=== PATIENT | male | born 1980 | race Hispanic/Latino ===

== ENCOUNTER 2016-09-26 07:05 | Emergency (ER) | payer BC ==
[2016-09-26 07:06] VITALS: BMI 30.8
[2016-09-26] MEDS ORDERED: Albuterol-Ipratrop 3 mg / 0.5 (3 ml) UD IH STA ×3 (07:36→07:37)
--- NOTE | 2016-09-26 07:39 | ED PDOC ---
Arrival/HPI - General Chief Complaint: Shortness Of Breath Time Seen by Provider: 09/26/16 07:08 Historian: Patient - History of Present Illness Narrative History of Present Illness (Text): 09/26/16 07:36 Mikey Kaur is a 36 year old male, with a history of asthma, presents to the emergency department complaining of asthma exacerbation for past 5 days. Reports of shortness of breath and wheezing, but denies any cough. Patient used nebulizer treatments at home for minimal relief. Denies any fever, chills, headache, dizziness, chest pain, nausea, vomiting, diarrhea, urinary symptoms, or any other complaints at this time. Time/Duration: < week (5 days ) Symptom Onset: Gradual Symptom Course: Intermittent Severity Level: Mild Activities at Onset: Light Past Medical History - Provider Review Nursing Documentation Reviewed: Yes - Infectious Disease Hx of Infectious Diseases: None - Tetanus Immunization Tetanus Immunization: Unknown - Cardiac Hx Cardiac Disorders: No - Pulmonary Hx Respiratory Disorders: Yes Hx Asthma: Yes - Neurological Hx Neurological Disorder: No - HEENT Hx HEENT Disorder: No - Renal Hx Renal Disorder: No - Endocrine/Metabolic Hx Endocrine Disorders: No - Hematological/Oncological Hx Blood Disorders: No - Integumentary Hx Dermatological Disorder: No - Musculoskeletal/Rheumatological Hx Musculoskeletal Disorders: No - Gastrointestinal Hx Gastrointestinal Disorders: No - Genitourinary/Gynecological Hx Genitourinary Disorders: No - Psychiatric Hx Psychophysiologic Disorder: No Hx Substance Use: No - Past Surgical History Past Surgical History: No Previous - Surgical History Hx Tonsillectomy: Yes - Anesthesia Hx Anesthesia: Yes Hx Anesthesia Reactions: No Hx Malignant Hyperthermia: No - Suicidal Assessment Feels Threatened In Home Enviroment: No Family/Social History - Physician Review Nursing Documentation Reviewed: Yes Family/Social History: No Known Family HX Smoking Status: Never Smoked Hx Alcohol Use: No Hx Substance Use: No Hx Substance Use Treatment: No Allergies/Home Meds Allergies/Adverse Reactions: Allergies No Known Allergies Allergy (Verified 09/26/16 07:14) Home Medications: Home Meds Medication Instructions Recorded Confirmed Albuterol HFA [Ventolin HFA 90 0 mg IH PRN PRN 09/26/16 09/26/16 mcg/actuation (8 g)] Review of Systems - Physician Review All systems were reviewed & negative as marked: Yes - Review of Systems Constitutional: Normal. absent: Fatigue, Fevers Respiratory: SOB, Wheezing. absent: Cough, Sputum Cardiovascular: Normal. absent: Chest Pain Gastrointestinal: Normal. absent: Diarrhea, Nausea, Vomiting Genitourinary Male: Normal. absent: Dysuria Neurological: Normal. absent: Headache, Dizziness Psychiatric: Normal Physical Exam - Physical Exam Narrative Physical Exam (Text): Constitutional: No acute distress. Head: Normocephalic. Atraumatic. Eyes: PERRL. ENT: Moist mucous membranes. Neck: Supple. Cardiovascular: Regular rate. Chest: No tenderness. Respiratory: bilateral inspiratory and expiratory wheezing. No accessory muscle use. GI: Soft. Nontender. Nondistended. Back: No CVA tenderness. Musculoskeletal: No tenderness or swelling of extremities. Skin: No rash. Neurologic: Alert, no focal deficit. Vital Signs Reviewed: Yes Vital Signs Temp Pulse Resp BP Pulse Ox 09/26/16 07:15 18 95 09/26/16 07:06 97.6 F 75 18 103/64 95 Temperature: Afebrile Blood Pressure: Normal Pulse: Regular Respiratory Rate: Normal Appearance: Positive for: Well-Appearing, Non-Toxic, Comfortable Pain Distress: None Mental Status: Positive for: Alert and Oriented X 3 Medical Decision Making ED Course and Treatment: 09/26/16 07:41 Impression: A 36 year old male who presents to the ed for asthma exacerbation symptoms including shortness of breath and wheezing Differential Diagnosis include but are not limited to: Asthma vs. bronchitis vs. pneumonia Plan: -- Chest X-ray -- Duoneb -- Predisone -- Reassess and disposition Progress Notes: 09/26/16 09:04 Chest X-ray results reviewed: IMPRESSION: No focal consolidation, significant pleural effusion, or definite pneumothorax identified. 09/26/16 09:48 On reevaluation, patient states that breathing has improved markedly and is in no acute distress. I have discussed the results and plan with the patient, who expresses understanding. Patient given the opportunity to ask question, all questions were answered and there is agreement with the plan to discharge the patient home. Patient is stable for discharge. Patient was instructed to follow up with physician/clinic in 1-2 days or return if symptoms persist/ worsen or new concerning symptoms arise. - RAD Interpretation Narrative RAD Interpretations (Text): Chest PA and lateral FINDINGS: Examination limited by habitus. LUNGS: No focal consolidation. Please note that chest x-ray has limited sensitivity for the detection of pulmonary masses. PLEURA: No significant pleural effusion identified. No definite pneumothorax . CARDIOVASCULAR: The cardiomediastinal silhouette appears within normal limits of size. OSSEOUS STRUCTURES: No acute osseous abnormality identified. VISUALIZED UPPER ABDOMEN: Unremarkable. OTHER FINDINGS: None. IMPRESSION: No focal consolidation, significant pleural effusion, or definite pneumothorax identified. Radiology Orders: 09/26/16 07:36 CHEST TWO VIEWS (PA/LAT) [RAD] Stat Web Portal Developer: Radiologist - Medication Orders Current Medication Orders: Discontinued Medications Albuterol/Ipratropium (Duoneb 3 Mg/0.5 Mg (3 Ml) Ud) 3 ml IH STAT STA Stop: 09/26/16 07:37 Last Admin: 09/26/16 07:49 Dose: 3 ML Albuterol/Ipratropium (Duoneb 3 Mg/0.5 Mg (3 Ml) Ud) 3 ml IH STAT STA Stop: 09/26/16 07:38 Last Admin: 09/26/16 07:56 Dose: 3 ML Albuterol/Ipratropium (Duoneb 3 Mg/0.5 Mg (3 Ml) Ud) 3 ml IH STAT STA Stop: 09/26/16 07:38 Last Admin: 09/26/16 08:05 Dose: 3 ML Prednisone (Prednisone Tab) 60 mg PO STAT ONE Stop: 09/26/16 07:37 Last Admin: 09/26/16 07:45 Dose: 60 MG - Leylaibe Statement The provider has reviewed the documentation as recorded by the Ammon Plunkett Provider Attestation: All medical record entries made by the Ammon were at my direction and personally dictated by me. I have reviewed the chart and agree that the record accurately reflects my personal performance of the history, physical exam, medical decision making, and the department course for this patient. I have also personally directed, reviewed, and agree with the discharge instructions and disposition. Disposition/Present on Arrival - Present on Arrival Any Indicators Present on Arrival: No History of DVT/PE: No History of Uncontrolled Diabetes: No Urinary Catheter: No History of Decub. Ulcer: No History Surgical Site Infection Following: None - Disposition Have Diagnosis and Disposition been Completed?: Yes Diagnosis: Asthma attack Disposition: HOME/ ROUTINE Disposition Time: 09:46 Patient Plan: Discharge Patient Problems: Current Active Problems Problem Status Diagnosed Asthma attack Acute Condition: STABLE Discharge Instructions (ExitCare): Asthma (ED) Prescriptions: Albuterol 0.083% [Albuterol Sulfate 3 Ml] 3 ml IH Q4 #150 neb Prednisone [Deltasone] 3 tab PO DAILY #12 tablet Albuterol HFA [Ventolin HFA 90 mcg/actuation (8 g)] 2 puff IH Q6 #1 inhaler Referrals: Yady Adams, [Primary Care Provider] - Follow up with primary
[2016-09-26 08:00] VITALS: RESP 18; TEMP 97.6
--- NOTE | 2016-09-26 09:01 | RAD ---
HISTORY: r/o PNA COMPARISON: Chest x-ray performed 10/03/15. TECHNIQUE: Chest PA and lateral FINDINGS: Examination limited by habitus. LUNGS: No focal consolidation. Please note that chest x-ray has limited sensitivity for the detection of pulmonary masses. PLEURA: No significant pleural effusion identified. No definite pneumothorax . CARDIOVASCULAR: The cardiomediastinal silhouette appears within normal limits of size. OSSEOUS STRUCTURES: No acute osseous abnormality identified. VISUALIZED UPPER ABDOMEN: Unremarkable. OTHER FINDINGS: None. IMPRESSION: No focal consolidation, significant pleural effusion, or definite pneumothorax identified.
[2016-09-26 10:16] VITALS: BP 116/63; PULSE 68; O2SAT 96
== END 2016-09-26 10:16 | disposition home or self-care (01) ==
LOC: ED 07:05
DX: J45.909 Unspecified asthma, uncomplicated (principal)

== ENCOUNTER 2016-10-10 17:07 | Emergency (ER) | payer BC ==
[2016-10-10 17:08] VITALS: BMI 30.8
[2016-10-10] MEDS ORDERED: Levalbuterol 1.25 MG/3 ML Inhal Soln UD IH STA (17:31)
[2016-10-10] MEDS ORDERED: Morphine 4 mg/ml ISec SC STA (17:32)
--- NOTE | 2016-10-10 17:36 | ED PDOC ---
Arrival/HPI - General Chief Complaint: Back Pain Time Seen by Provider: 10/10/16 17:22 Historian: Patient - History of Present Illness Narrative History of Present Illness (Text): 10/10/16 17:32 36 y.o. male whose PMHx includes asthma and chronic low back pain (reports 2 herniated discs) who comes to the ED with complaint of mid level back pain slightly toward the right. He says he lifted his son and shortly after developed the pain there. The pain is worse with movement. No flank pain or urinary symptoms. No sob, cp, or cough and does not feel like asthma. He reports taking one tablet of flexeril for it without relief. Past Medical History - Infectious Disease Hx of Infectious Diseases: None - Tetanus Immunization Tetanus Immunization: Unknown - Cardiac Hx Cardiac Disorders: No - Pulmonary Hx Respiratory Disorders: Yes Hx Asthma: Yes - Neurological Hx Neurological Disorder: No - HEENT Hx HEENT Disorder: No - Renal Hx Renal Disorder: No - Endocrine/Metabolic Hx Endocrine Disorders: No - Hematological/Oncological Hx Blood Disorders: No - Integumentary Hx Dermatological Disorder: No - Musculoskeletal/Rheumatological Hx Musculoskeletal Disorders: No - Gastrointestinal Hx Gastrointestinal Disorders: No - Genitourinary/Gynecological Hx Genitourinary Disorders: No - Psychiatric Hx Psychophysiologic Disorder: No Hx Substance Use: No - Past Surgical History Past Surgical History: No Previous - Surgical History Hx Tonsillectomy: Yes - Anesthesia Hx Anesthesia: Yes Hx Anesthesia Reactions: No Hx Malignant Hyperthermia: No - Suicidal Assessment Feels Threatened In Home Enviroment: No Family/Social History Family/Social History: No Known Family HX Smoking Status: Never Smoked Hx Alcohol Use: No Hx Substance Use: No Hx Substance Use Treatment: No Allergies/Home Meds Allergies/Adverse Reactions: Allergies No Known Allergies Allergy (Verified 09/26/16 07:14) Review of Systems - Review of Systems Constitutional: absent: Fevers Respiratory: absent: SOB, Cough Cardiovascular: absent: Chest Pain Gastrointestinal: absent: Abdominal Pain, Nausea, Vomiting Genitourinary Male: absent: Dysuria, Frequency, Hematuria, Urinary Output Changes Musculoskeletal: Back Pain Physical Exam Vital Signs Temp Pulse Resp BP Pulse Ox 10/10/16 18:30 66 16 129/65 97 10/10/16 17:08 98.2 F 66 17 122/62 96 Temperature: Afebrile Blood Pressure: Normal Pulse: Regular Respiratory Rate: Normal Appearance: Positive for: Well-Appearing, Non-Toxic Pain Distress: Mild Mental Status: Positive for: Alert and Oriented X 3 - Systems Exam Head: Present: Atraumatic, Normocephalic Respiratory/Chest: Present: Other (mildly reduced air entry) Cardiovascular: Present: Regular Rate and Rhythm, Normal S1, S2. No: Murmurs Abdomen: Present: Normal Bowel Sounds. No: Tenderness, Distention, Peritoneal Signs Back: Present: Normal Inspection, Paraspinal Tenderness (R paraspinal tenderness at the midlevel thoracic spine). No: CVA Tenderness, Midline Tenderness Upper Extremity: Present: Normal Inspection. No: Cyanosis, Edema Neurological: Present: GCS=15 Psychiatric: Present: Alert, Oriented x 3, Normal Insight, Normal Concentration Medical Decision Making ED Course and Treatment: 10/10/16 20:32 Patient with back pain, likely musculoskeletal in nature. XR is unremarkable. No symptoms consistent with asthma or PE. Urine is normal - no indication of UTI and less likely renal colic; given nsaid and muscle relaxant - feeling better here in the ED - will d/c on nsaid, muscle relaxant, and analgesic. - Lab Interpretations Lab Results: Lab Results 10/10/16 19:15: Urine Color Yellow, Urine Appearance Clear, Urine pH 6.5, Ur Specific [place] 1.015, Urine Protein Negative, Urine Glucose (UA) Negative, Urine Ketones Negative, Urine Blood Negative, Urine Nitrate Negative, Urine Bilirubin Negative, Urine Urobilinogen 0.2, Ur Leukocyte Esterase Negative - RAD Interpretation Radiology Orders: 10/10/16 17:32 DORSAL (THORACIC) SPINE [RAD] Stat - Medication Orders Current Medication Orders: Discontinued Medications Diazepam (Valium) 5 mg PO ONCE ONE Stop: 10/10/16 17:32 Last Admin: 10/10/16 17:41 Dose: 5 MG Ketorolac Tromethamine (Toradol) 60 mg IM STAT STA Stop: 10/10/16 17:32 Last Admin: 10/10/16 17:41 Dose: 60 MG IM Administration Charges Document 10/10/16 17:41 SF (Rec: 10/10/16 17:41 SF [id number]) Injection Site MAR Injection Site Left Deltoid Charges for Administration # of IM Administrations 1 Levalbuterol HCl (Xopenex) 1.25 mg IH STAT STA Stop: 10/10/16 17:32 Last Admin: 10/10/16 18:01 Dose: 1.25 MG Morphine Sulfate (Morphine) 4 mg SC STAT STA Stop: 10/10/16 17:33 Last Admin: 10/10/16 17:41 Dose: 4 MG MAR Pain Assessment Document 10/10/16 17:41 SF (Rec: 10/10/16 17:41 [place] [id number]) Pain Reassessment Is this a pain reassessment? Yes Subcutaneous Administrations Document 10/10/16 17:41 SF (Rec: 10/10/16 17:41 SF [id number]) Injection Site MAR Injection Site Right Deltoid Charges for Administration # of Subcutaneous Administrations 1 Disposition/Present on Arrival - Present on Arrival Any Indicators Present on Arrival: No History of DVT/PE: No History of Uncontrolled Diabetes: No Urinary Catheter: No History of Decub. Ulcer: No History Surgical Site Infection Following: None - Disposition Have Diagnosis and Disposition been Completed?: No Diagnosis: Back strain Disposition: HOME/ ROUTINE Disposition Time: 20:40 Patient Plan: Discharge Condition: GOOD Discharge Instructions (ExitCare): Back Pain (ED) Additional Instructions: Take the medications as prescribed. Avoid heavy lifting. Follow up with your primary care doctor. Return to the emergency department if any new concerning symptoms. Prescriptions: Baclofen [Lioresal] 1 tab PO TID PRN #20 tab PRN Reason: Pain, Moderate (4-7) Naproxen [Naprosyn] 500 mg PO BID PRN #30 tab PRN Reason: Pain Tramadol HCl/Acetaminophen [Ultracet Tablet] 1 - 2 tab PO Q8H PRN #20 tablet PRN Reason: Pain, Severe (8-10) Forms: WORK NOTE
[2016-10-10 17:39] VITALS: TEMP 98.2
[2016-10-10 20:02] LABS: PH,URINE 6.5 (4.7-8.0); URINE BILIRUBIN NEGATIVE (NEGATIVE); URINE BLOOD NEGATIVE (NEGATIVE); URINE GLUCOSE (UA) NEGATIVE (NEGATIVE); URINE KETONE NEGATIVE (NEGATIVE); URINE LEUKOCYTE ESTERASE NEGATIVE Leu/uL (NEGATIVE); URINE PROTEIN NEGATIVE mg/dL (<30 mg/dL); URINE UROBILINOGEN 0.2 E.U./dL (<1 E.U./dL)
[2016-10-10 20:21] LABS: URINE APPEARANCE CLEAR (CLEAR); URINE COLOR YELLOW (YELLOW)
[2016-10-10 20:55] VITALS: BP 100/60; PULSE 62; RESP 18; O2SAT 98
--- NOTE | 2016-10-11 09:30 | RAD ---
HISTORY: mid thoracic spine pain COMPARISON: No prior. FINDINGS: BONES: Alignment maintained. No fracture. DISC SPACES: Normal. SOFT TISSUES: Normal. OTHER FINDINGS: None. IMPRESSION: Normal radiographs of the thoracic spine.
== END 2016-10-10 21:00 | disposition home or self-care (01) ==
LOC: ED 17:07
DX: S39.012A Strain of muscle, fascia and tendon of lower back, initial encounter (principal); X50.9XXA Other and unspecified overexertion or strenuous movements or postures, initial encounter
CPT/HCPCS: 72070; 81003; 96372; 99284; J1885; J2270

== ENCOUNTER 2016-10-12 06:11 | Observation (INO) | payer BC ==
[2016-10-12 06:12] VITALS: BMI 30.8
--- NOTE | 2016-10-12 06:17 | ED PDOC ---
Arrival/HPI - General Chief Complaint: Shortness Of Breath Time Seen by Provider: 10/12/16 06:15 - History of Present Illness Narrative History of Present Illness (Text): 10/12/16 06:15 pt presents for sob and wheezing this am , no fever or chills or vomiting or chest pain or sore throat Past Medical History - Provider Review Nursing Documentation Reviewed: Yes - Infectious Disease Hx of Infectious Diseases: None - Tetanus Immunization Tetanus Immunization: Unknown - Cardiac Hx Cardiac Disorders: No - Pulmonary Hx Respiratory Disorders: Yes Hx Asthma: Yes - Neurological Hx Neurological Disorder: No - HEENT Hx HEENT Disorder: No - Renal Hx Renal Disorder: No - Endocrine/Metabolic Hx Endocrine Disorders: No - Hematological/Oncological Hx Blood Disorders: No - Integumentary Hx Dermatological Disorder: No - Musculoskeletal/Rheumatological Hx Musculoskeletal Disorders: No - Gastrointestinal Hx Gastrointestinal Disorders: No - Genitourinary/Gynecological Hx Genitourinary Disorders: No - Psychiatric Hx Psychophysiologic Disorder: No Hx Substance Use: No - Past Surgical History Past Surgical History: No Previous - Surgical History Hx Tonsillectomy: Yes - Anesthesia Hx Anesthesia: Yes Hx Anesthesia Reactions: No Hx Malignant Hyperthermia: No - Suicidal Assessment Feels Threatened In Home Enviroment: No Family/Social History - Physician Review Nursing Documentation Reviewed: Yes Family/Social History: No Known Family HX Smoking Status: Never Smoked Hx Alcohol Use: No Hx Substance Use: No Hx Substance Use Treatment: No Allergies/Home Meds Allergies/Adverse Reactions: Allergies No Known Allergies Allergy (Verified 09/26/16 07:14) Review of Systems - Review of Systems Constitutional: Normal Eyes: Normal ENT: Normal Respiratory: SOB, Wheezing Cardiovascular: Normal Gastrointestinal: Normal Genitourinary Male: Normal Musculoskeletal: Normal Skin: Normal Neurological: Normal Endocrine: Normal Hemo/Lymphatic: Normal Psychiatric: Normal Physical Exam Vital Signs Reviewed: Yes Vital Signs Temp Pulse Resp BP Pulse Ox 10/12/16 10:37 78 18 106/63 95 10/12/16 08:59 68 18 133/69 97 10/12/16 07:23 70 24 135/76 96 10/12/16 06:39 18 95 10/12/16 06:29 98 F 73 18 122/74 95 Temperature: Afebrile Blood Pressure: Normal Pulse: Regular Respiratory Rate: Normal Appearance: Positive for: Well-Appearing, Non-Toxic, Comfortable Pain Distress: None Mental Status: Positive for: Alert and Oriented X 3 - Systems Exam Head: Present: Atraumatic, Normocephalic Pupils: Present: PERRL Extroacular Muscles: Present: EOMI Conjunctiva: Present: Normal Mouth: Present: Moist Mucous Membranes Neck: Present: Normal Range of Motion Respiratory/Chest: Present: Wheezes. No: Respiratory Distress, Accessory Muscle Use Cardiovascular: Present: Regular Rate and Rhythm, Normal S1, S2. No: Murmurs Abdomen: Present: Normal Bowel Sounds. No: Tenderness, Distention, Peritoneal Signs Back: Present: Normal Inspection Upper Extremity: Present: Normal Inspection. No: Cyanosis, Edema Lower Extremity: Present: Normal Inspection. No: Edema Neurological: Present: GCS=15, CN II-XII Intact, Speech Normal Skin: Present: Warm, Dry, Normal Color. No: Rashes Psychiatric: Present: Alert, Oriented x 3, Normal Insight, Normal Concentration Medical Decision Making - Lab Interpretations Lab Results: 10/12/16 08:10 10/12/16 08:10 Lab Results 10/12/16 08:10: WBC 4.3 L, RBC 5.37, Hgb 15.0, Hct 42.7, MCV 79.5 L, MCH 27.9, MCHC 35.1, RDW 13.5, Plt Count 137, MPV 9.9, Gran % 72.5 H, Lymph % (Auto) 16.8 L, Parker % (Auto) 3.0, Eos % (Auto) 7.2 H, Baso % (Auto) 0.5, Gran # 3.11, Lymph # 0.7 L, Parker # 0.1, Eos # 0.3, Baso # 0.02, Sodium 141, Potassium 3.9, Chloride 106, Carbon Dioxide 27, Anion Gap 12, BUN 14, Creatinine 0.8, Est GFR ( Amer) > 60, Est GFR (Non-Af Amer) > 60, Random Glucose 106, Calcium 8.7 , Total Bilirubin 0.8, AST 36, ALT 62 H, Alkaline Phosphatase 72, Total Protein 6.7, Albumin 3.6, Globulin 3.1, Albumin/Globulin Ratio 1.2 - RAD Interpretation Radiology Orders: 10/12/16 07:35 CHEST PORTABLE [RAD] Stat - Medication Orders Current Medication Orders: Discontinued Medications Albuterol/Ipratropium (Duoneb 3 Mg/0.5 Mg (3 Ml) Ud) 3 ml IH Q15M STEVEN Stop: 10/12/16 07:01 Last Admin: 10/12/16 08:06 Dose: 3 ML Albuterol/Ipratropium (Duoneb 3 Mg/0.5 Mg (3 Ml) Ud) 3 ml IH STAT STA Stop: 10/12/16 07:36 Last Admin: 10/12/16 08:06 Dose: 3 ML Comments: duplicate Albuterol/Ipratropium (Duoneb 3 Mg/0.5 Mg (3 Ml) Ud) 3 ml IH STAT STA Stop: 10/12/16 09:26 Last Admin: 10/12/16 09:59 Dose: 3 ML Albuterol/Ipratropium (Duoneb 3 Mg/0.5 Mg (3 Ml) Ud) 3 ml IH [id number] STEVEN Stop: 10/12/16 15:31 Last Admin: 10/12/16 14:59 Dose: 3 ML Albuterol/Ipratropium (Duoneb 3 Mg/0.5 Mg (3 Ml) Ud) 3 ml IH [id number] STEVEN Last Admin: 10/13/16 07:21 Dose: 3 ML Methylprednisolone (Solu-Medrol) 125 mg IVP ONCE ONE Stop: 10/12/16 06:18 Last Admin: 10/12/16 06:40 Dose: 125 MG IVP Administration Document 10/12/16 06:40 JOANN (Rec: 10/12/16 06:40 JOANN [id number]) Charges for Administration # of IVP Administrations 1 Methylprednisolone (Solu-Medrol) 40 mg IVP Q12 [facility] Last Admin: 10/12/16 21:17 Dose: 40 MG IVP Administration Document 10/12/16 21:17 KGD (Rec: 10/12/16 21:17 KGD [id number]) Charges for Administration # of IVP Administrations 1 Tramadol HCl (Ultram) 50 mg PO Q8H PRN PRN Reason: Pain, Mild (1-3) - Transfer of Care Patient signed out to Dr:: jung Disposition/Present on Arrival - Present on Arrival Any Indicators Present on Arrival: No History of DVT/PE: No History of Uncontrolled Diabetes: No Urinary Catheter: No History of Decub. Ulcer: No History Surgical Site Infection Following: None - Disposition Have Diagnosis and Disposition been Completed?: Yes Diagnosis: Asthma attack Disposition: HOSPITALIZED Disposition Time: 07:00 Condition: FAIR
[2016-10-12] MEDS: Albuterol-Ipratrop 3 mg / 0.5 (3 ml) UD IH SCH ×9 (06:29→23:05)
[2016-10-12] MEDS ORDERED: Albuterol-Ipratrop 3 mg / 0.5 (3 ml) UD IH STA ×2 (07:35→09:25)
[2016-10-12 08:29] LABS: ADD MANUAL DIFF? NO
[2016-10-12 08:32] LABS: BASO # 0.02 K/mm3 (0.0-2.0); BASO % 0.5 % (0.0-3.0); EOS # 0.3 (0.0-0.7); EOS % 7.2 % (1.5-5.0); GRAN # 3.11 (1.4-6.5); GRAN % 72.5 % (50.0-68.0); HEMATOCRIT 42.7 % (42.0-52.0); LYMPH # 0.7 (1.2-3.4); LYMPH % 16.8 % (22.0-35.0); MEAN CELL VOLUME 79.5 fL (80.0-105.0); MEAN CORPUSCULAR HEMOGLOBIN 27.9 pg (25.0-35.0); MEAN CORPUSCULAR HGB CONC 35.1 g/dl (31.0-37.0); MEAN PLATELET VOLUME 9.9 fl (7.0-11.0); MONO # 0.1 (0.1-0.6); PLATELET COUNT 137 10^3/uL (120.0-450.0); RED CELL DISTRIBUTION WIDTH 13.5 % (11.5-14.5); WHITE BLOOD COUNT 4.3 10^3/ul (4.5-11.0)
[2016-10-12 08:48] LABS: ALB/GLOB RATIO 1.2 (1.1-1.8); ALKALINE PHOSPHATASE 72 U/L (38-133); ALT/SGPT 62 U/L (7-56); AST/SGOT 36 U/L (15-59); BILIRUBIN,TOTAL 0.8 mg/dL (0.2-1.3); BLOOD UREA NITROGEN 14 mg/dL (7-21); CALCIUM 8.7 mg/dL (8.4-10.5); CARBON DIOXIDE 27 mmol/L (21-33); CHLORIDE 106 mmol/L (98-107); GFR AFRICAN-AMERICAN > 60; GLUCOSE,RANDOM 106 mg/dL (70-110); POTASSIUM 3.9 mmol/L (3.6-5.0); SODIUM 141 mmol/L (132-148); TOTAL PROTEIN 6.7 g/dL (5.8-8.3)
--- NOTE | 2016-10-12 08:51 | RAD ---
HISTORY: sob COMPARISON: 09/26/2016 FINDINGS: LUNGS: No active pulmonary disease. PLEURA: Examination limited. Left costophrenic angle not included on this film. CARDIOVASCULAR: Normal. OSSEOUS STRUCTURES: No significant abnormalities. VISUALIZED UPPER ABDOMEN: Normal. OTHER FINDINGS: None. IMPRESSION: No active disease. Limited examination.
--- NOTE | 2016-10-12 09:22 | ED PDOC ---
Physical Exam Vital Signs Reviewed: Yes Vital Signs Temp Pulse Resp BP Pulse Ox 10/12/16 12:53 98 F 78 18 106/63 10/12/16 11:42 89 10/12/16 10:37 78 18 106/63 95 10/12/16 08:59 68 18 133/69 97 10/12/16 07:23 70 24 135/76 96 10/12/16 06:39 18 95 10/12/16 06:29 98 F 73 18 122/74 95 Temperature: Afebrile Blood Pressure: Normal Pulse: Regular Respiratory Rate: Normal Appearance: Positive for: Well-Appearing, Non-Toxic, Comfortable Pain Distress: None Mental Status: Positive for: Alert and Oriented X 3 Medical Decision Making ED Course and Treatment: 10/12/16 07:00 Case signed out to me from overnight, pending labs, imaging, reevaluation and disposition. The patient is a 36 year old male who came into the emergency department earlier today complaining of shortness of breath and wheezing. Patient has a history of asthma. 10/12/16 07:35 On reevaluation, the patient has diffuse wheezing despite 3 nebulizer treatment and steroids given prior to arrival as well as in the emergency department. On arrival patient was given additional treatment. Lab work and Chest X-ray were ordered given persistent wheezing. Patient has had prior admissions for asthma , not recently per him. 10/12/16 08:52 Chest X-ray: Creator : Dewayne Benz MD COMPARISON: 09/26/2016 FINDINGS: LUNGS: No active pulmonary disease. PLEURA: Examination limited. Left costophrenic angle not included on this film. CARDIOVASCULAR: Normal. OSSEOUS STRUCTURES: No significant abnormalities. VISUALIZED UPPER ABDOMEN: Normal. OTHER FINDINGS: None. IMPRESSION: No active disease. Limited examination. 10/12/16 09:06 On reevaluation, patient with persistent wheezing despite multiple nebulizer treatments. Patient will need to be admitted to the hospital for asthma exacerbation as remains symptomatic after multiple nebs. 10/12/16 09:[address] Lamar, oncall physician, who is aware and agrees with the plan to admit patient to Med/Surg for acute asthma exacerbation. I have discussed the results and plan with the patient, who expresses understanding. Patient given the opportunity to ask question, all questions were answered and there is agreement with the plan to be admitted to the hospital. - Lab Interpretations Lab Results: 10/12/16 08:10 10/12/16 08:10 Lab Results 10/12/16 08:10: WBC 4.3 L, RBC 5.37, Hgb 15.0, Hct 42.7, MCV 79.5 L, MCH 27.9, MCHC 35.1, RDW 13.5, Plt Count 137, MPV 9.9, Gran % 72.5 H, Lymph % (Auto) 16.8 L, Pickett % (Auto) 3.0, Eos % (Auto) 7.2 H, Baso % (Auto) 0.5, Gran # 3.11, Lymph # 0.7 L, Pickett # 0.1, Eos # 0.3, Baso # 0.02, Sodium 141, Potassium 3.9, Chloride 106, Carbon Dioxide 27, Anion Gap 12, BUN 14, Creatinine 0.8, Est GFR ( Amer) > 60, Est GFR (Non-Af Amer) > 60, Random Glucose 106, Calcium 8.7 , Total Bilirubin 0.8, AST 36, ALT 62 H, Alkaline Phosphatase 72, Total Protein 6.7, Albumin 3.6, Globulin 3.1, Albumin/Globulin Ratio 1.2 I have reviewed the lab results: Yes - RAD Interpretation Radiology Orders: 10/12/16 07:35 CHEST PORTABLE [RAD] Stat - Medication Orders Current Medication Orders: Albuterol/Ipratropium (Duoneb 3 Mg/0.5 Mg (3 Ml) Ud) 3 ml IH [id number] STEVEN Stop: 10/12/16 15:31 Last Admin: 10/12/16 11:42 Dose: 3 ML Methylprednisolone (Solu-Medrol) 40 mg IVP Q12 [facility] Last Admin: 10/12/16 10:45 Dose: 40 MG IVP Administration Document 10/12/16 10:45 [facility] (Rec: 10/12/16 10:45 [facility] [id number]) Charges for Administration # of IVP Administrations 1 Discontinued Medications Albuterol/Ipratropium (Duoneb 3 Mg/0.5 Mg (3 Ml) Ud) 3 ml IH Q15M [facility] Stop: 10/12/16 07:01 Last Admin: 10/12/16 08:06 Dose: 3 ML Albuterol/Ipratropium (Duoneb 3 Mg/0.5 Mg (3 Ml) Ud) 3 ml IH STAT STA Stop: 10/12/16 07:36 Last Admin: 10/12/16 08:06 Dose: 3 ML Comments: duplicate Albuterol/Ipratropium (Duoneb 3 Mg/0.5 Mg (3 Ml) Ud) 3 ml IH STAT STA Stop: 10/12/16 09:26 Last Admin: 10/12/16 09:59 Dose: 3 ML Methylprednisolone (Solu-Medrol) 125 mg IVP ONCE ONE Stop: 10/12/16 06:18 Last Admin: 10/12/16 06:40 Dose: 125 MG IVP Administration Document 10/12/16 06:40 [facility] (Rec: 10/12/16 06:40 [facility] [id number]) Charges for Administration # of IVP Administrations 1 - Scribe Statement The provider has reviewed the documentation as recorded by the Scribe Rachid Barahona Provider Scribe Attestation: All medical record entries made by the Scribe were at my direction and personally dictated by me. I have reviewed the chart and agree that the record accurately reflects my personal performance of the history, physical exam, medical decision making, and the department course for this patient. I have also personally directed, reviewed, and agree with the discharge instructions and disposition. Disposition/Present on Arrival - Present on Arrival Any Indicators Present on Arrival: No History of DVT/PE: No History of Uncontrolled Diabetes: No Urinary Catheter: No History of Decub. Ulcer: No History Surgical Site Infection Following: None - Disposition Have Diagnosis and Disposition been Completed?: Yes Diagnosis: Asthma attack Disposition: HOSPITALIZED Disposition Time: 09:06 Patient Plan: Admission Patient Problems: Current Active Problems Problem Status Diagnosed Asthma attack Acute Condition: FAIR
[2016-10-12] MEDS ORDERED: MethylPREDNISolone 40 mg Vial IVP SCH (10:15)
[2016-10-12] MEDS: MethylPREDNISolone 40 mg Vial IVP SCH ×2 (10:45→21:17)
--- NOTE | 2016-10-12 12:23 | HP ---
SUBJECTIVE: I saw Mikey in the Emergency Room. I was called by the ER doctor. He was seen in the middle of the night. He is wheezing and short of breath. He is a 36-year-old male with history of asthma who comes in wheezing, short of breath. He took many neb treatments at home, neb treatmen ts in the Emergency Room. They finally had to give him Solu-Medrol 125. That helped a lot. PAST MEDICAL HISTORY: Asthma, tonsillectomy, he has had back pain in the past. ALLERGIES: No known drug allergies. FAMILY HISTORY: No known family history. SOCIAL HISTORY: No smoking, no drinking, no drugs. REVIEW OF SYSTEMS: No acute vision changes, no acute hearing changes. He is short of breath. He is wheezing, hard for him to catch his breath. No chest pain, no abdominal pain. No nausea, vomiting, constipation, diarrhea. Skin for the most part is okay. No weakness. PHYSICAL EXAMINATION: VITAL SIGNS: He has a 98 temp, 68 pulse, 133/69 blood pressure, 18 respiratory rate was as high as 2 4, and 97-95% O2 sat. HEENT: Head is atraumatic, normocephalic. Extraocular muscles are intact. Pupils equal, react to l ight and accommodation. Throat is moist. NECK: Supple. HEART: Regular rate. LUNGS: Decreased breath sounds, with wheezing bilaterally, changes with cough, poor inspiration. HEART: Regular rate. ABDOMEN: Soft, nontender, positive bowel sounds. EXTREMITIES: No edema. NEUROLOGIC: Alert and oriented x 3. Cranial nerves II-XII grossly intact. GCS is 15. SKIN: Warm and dry. Thyroid midline. No palpable lymphadenopathy. SOCIAL HISTORY: He is a emergency communications officer. LABORATORY DATA: He had a white count 4.3, hemoglobin 15, hematocrit 42.7, platelets 137. He has a 141 sodium, potassium 3.9, BUN is 14, creatinine 0.8, GFR is greater than 60, sugar is 106, calcium i s 8.7, AST is 36, ALT 62, alkaline phosphatase is 72, total protein 6.7. He had a chest x-ray, which showed no active disease. ASSESSMENT AND PLAN: He will be on Solu-Medrol, oxygen, pulmonary consult, DuoNebs only until need b reaks, and he can will put him on prednisone p.o. Hopefully in the next day or two, he will break. He is here for acute asthmatic attack, shortness of breath. Zain Lamar DO cc: [id number] TT: 10/12/2016 12:22:29 jn
--- NOTE | 2016-10-12 12:34 | CON ---
DATE: 10/12/2016 REASON FOR CONSULTATION: Asthma. REFERRING PHYSICIAN: Dr. Zain Lamar HISTORY OF PRESENT ILLNESS: The patient is a 36-year-old male with past medical history significant for asthma, recurrent bronchitis, chronic lower back pain (secondary to multiple herniated disks), who presents to the Emergency Room with increasing shortness of breath at rest and dyspnea on exertion -- starting this morning. The patient states he was fine yesterday. However, when he awoke this morning, he was experiencing shortness of breath, as well as wheezing. He then came to the Emergency Room for additional evaluation. The patient denies cough or sputum production. The patient also denies chest pain, coughing up of blood or chest pain -- made worse with deep respirations. There is no history of temperatures, chills or infectious exposure. There is no history of night sweats, weight loss or appetite change prior to the above events. No history of leg or calf pains. No history of syncope or diaphoresis. No history of recent travel or trauma. REVIEW OF SYSTEMS: No history of nausea, vomiting or diarrhea. No acute urinary symptoms. No new neurological complaints. Rest of review of systems negative. ALLERGIES: No known allergies. SOCIAL HISTORY: Negative for tobacco, negative for alcohol. FAMILY HISTORY: Positive for asthma. HOME MEDICATIONS: Include Ultracet, Naprosyn, baclofen, albuterol HFA. PHYSICAL EXAMINATION: GENERAL: The patient is not short of breath at rest. He is not using accessory muscles for breathing. VITAL SIGNS: Temperature is 98.0, pulse 68, respirations 18. Blood pressure 133/69. HEENT: Normocephalic, atraumatic. NECK: No JVD. CARDIOVASCULAR: Positive S1, S2. No S3. LUNGS: Decreased breath sounds at the bases. Mild rhonchi and wheezing bilaterally are appreciated. EXTREMITIES: No clubbing, cyanosis, or edema. Calves are nontender to palpation. GASTROINTESTINAL: Abdomen is soft, nontender, nondistended. Bowel sounds are positive. SKIN: No acute rash. NEUROLOGIC: Limited at the present time. PERTINENT LABORATORY DATA: Chest x-ray was done this morning and reviewed. There is no active disease noted. CBC: White count 4.3, hemoglobin 15.0, hematocrit 42.7, platelets of 137. Complete metabolic profile: ALT 62. Rest of the metabolic profile is within normal limits. IMPRESSION: 1. Acute bronchitis. 2. Asthma. 3. Chronic lower back pain. PLAN: The patient presents to [facility] with increasing respiratory symptoms -- starting this morning. Again, the patient states he was fine yesterday. I did review the x-ray as above. The x-ray reveals no acute disease. On physical exam, there is mild bronchospasm noted. However, there is no significant alveolar arterial gradient. Oxygen saturation on room air is 97%. I will continue with the current nebulizer treatments and increase the intravenous steroids(slightly) for now. The patient does feel better at the time of my examination. Repeat a.m. labs are ordered. Additional pulmonary intervention will be based on the clinical status of the patient. I will discuss the above with Dr. Lamar. Thank you very much for this pulmonary consultation. Brain Patel MD cc: [id number] TT: 10/12/2016 12:33:18 Confirmation # [id number] Dictation # [id number] sn MTDD
[2016-10-13] MEDS: Albuterol-Ipratrop 3 mg / 0.5 (3 ml) UD IH SCH ×2 (04:40→07:21)
[2016-10-13 07:13] LABS: HEMATOCRIT 42.3 % (42.0-52.0); MEAN CELL VOLUME 79.5 fL (80.0-105.0); MEAN CORPUSCULAR HEMOGLOBIN 27.8 pg (25.0-35.0); RED CELL DISTRIBUTION WIDTH 13.8 % (11.5-14.5); WHITE BLOOD COUNT 11.7 10^3/ul (4.5-11.0)
[2016-10-13 07:19] LABS: ALB/GLOB RATIO 1.2 (1.1-1.8); ALKALINE PHOSPHATASE 70 U/L (38-133); ALT/SGPT 82 U/L (7-56); AST/SGOT 51 U/L (15-59); BILIRUBIN,TOTAL 0.5 mg/dL (0.2-1.3); BLOOD UREA NITROGEN 16 mg/dL (7-21); CALCIUM 9.2 mg/dL (8.4-10.5); CARBON DIOXIDE 27 mmol/L (21-33); CHLORIDE 106 mmol/L (98-107); GFR AFRICAN-AMERICAN > 60; GLUCOSE,RANDOM 127 mg/dL (70-110); POTASSIUM 4.6 mmol/L (3.6-5.0); SODIUM 142 mmol/L (132-148); TOTAL PROTEIN 6.7 g/dL (5.8-8.3)
[2016-10-13 08:22] VITALS: BP 144/96; PULSE 74; RESP 20; TEMP 98.5; O2SAT 94
--- NOTE | 2016-10-13 08:54 | PN ---
DATE: 10/13/2016 SUBJECTIVE: The patient appears very comfortable at rest. He is not short of breath. PHYSICAL EXAMINATION: VITAL SIGNS (last noted in the computer): Temperature is 98.0, pulse 78, respirations 18, blood pressure 106/63. Last oxygen saturation noted on room air -- 95%. HEENT: Normocephalic, atraumatic. No JVD. CARDIOVASCULAR: Positive S1, S2. No S3. LUNGS: Improved breath sounds at the bases. Very minimal/less rhonchi. No wheezing this morning. EXTREMITIES: No clubbing, cyanosis, or edema. Calves are nontender to palpation. GASTROINTESTINAL: Abdomen is soft, nontender, nondistended. Bowel sounds are positive. SKIN: No acute rash. NEUROLOGIC: Limited at the present time. IMPRESSION: 1. Acute bronchitis. 2. Asthma. 3. Chronic lower back pain. PLAN: The patient appears very comfortable this morning. He is not short of breath at rest. He states he is feeling much, much better overall. On physical exam, there is a significant decrease in the bronchospasm. In addition , there is no significant alveolar-arterial gradient. I did discuss the case with the patient and Dr. Lamar at length. The patient is for probable discharge later this morning. I did give him my business card/information to follow with me in the office. He agrees. Clinical status of the patient is significantly improved -- compared to the initial presentation. Again, I did discuss the case with Dr. Lamar at length. Brain Patel MD cc: [id number] TT: 10/13/2016 08:53:35 Confirmation # [id number] Dictation # [id number] en MTDD
--- NOTE | 2016-10-13 10:17 | DS ---
I saw him resting in bed comfortably this morning. He was already seen by pulmonology and he wants to go home today. He is breathing better, feeling better. No wheezes, no rhonchi, no rales. He did not sleep well. He is very uncomfortable here. He wants to go home. PHYSICAL EXAMINATION: VITAL SIGNS: Temp 98, 78 pulse, 106/63 blood pressure, 18 respiratory rate, 95 % O2 sat on room air. HEENT: His head is atraumatic, normocephalic. HEART: Regular rate. LUNGS: Clear to auscultation. No wheezes, no rhonchi, no rales. ABDOMEN: Soft. EXTREMITIES: No edema. He has a 4.3 white count, 15 hemoglobin, 137 platelets. Sodium 141, BUN 14, creatinine 0.8. PLAN: For him is to go home today. He will be on Advair 250/50 one puff twice a day. I will order his Ventolin for rescue inhaler. He had that before. I am also going to order prednisone 50 mg for 2 days, 40 mg for 2 days, 30 mg for 2 days, 20 mg for 2 days, 10 mg for 2 days and stop. That is as per pulmonary. He will go back on his regular medications he takes at home, which are tramadol, Naprosyn, . He will follow up in the office in a week. The patient was here for acute asthma. Zain Lamar DO cc: [id number] TT: 10/13/2016 10:16:49 en MTDD
== END 2016-10-13 09:15 | disposition home or self-care (01) ==
LOC: ED 06:11 → INTOOBSV 09:43 → ERH 09:43 → 5RNO 11:26
PROVIDERS: ADMIT Family Medicine; ATTEND Family Medicine
DX: J45.901 Unspecified asthma with (acute) exacerbation (principal); J20.9 Acute bronchitis, unspecified; G89.29 Other chronic pain; M54.5 Low back pain; Z82.5 Family history of asthma and other chronic lower respiratory diseases
CPT/HCPCS: 36415; 71010; 80053; 85025; 85027; 94640; 94760; 96374; 96376; 99284; G0378; J2920; J2930

== ENCOUNTER 2016-11-04 21:11 | Emergency (ER) | payer BC ==
[2016-11-04 21:12] VITALS: BMI 30.8
[2016-11-04 21:22] VITALS: RESP 18; TEMP 98.2
[2016-11-04] MEDS ORDERED: Albuterol-Ipratrop 3 mg / 0.5 (3 ml) UD ONE (21:39)
--- NOTE | 2016-11-04 21:54 | ED PDOC ---
Arrival/HPI - General Chief Complaint: Shortness Of Breath Time Seen by Provider: 11/04/16 21:21 Historian: Patient - History of Present Illness Narrative History of Present Illness (Text): 11/04/16 21:51 Mikey Kaur is a 36 year old male, with a history of asthma, presents to the emergency department complaining of shortness of breath since yesterday. States he used inhaler treatments at home for transient relief. Denies any cough , or fever. Reports he was hospitalized last month for asthmatic symptoms, but was never intubated. States symptoms are similar to previous asthmatic episodes. Denies headache, dizziness, chest pain, abdominal pain, nausea, vomiting, diarrhea, or any other complaints at this time. Time/Duration: Other (since yesterday ) Symptom Onset: Gradual Symptom Course: Intermittent Severity Level: Mild Activities at Onset: Light Past Medical History - Provider Review Nursing Documentation Reviewed: Yes - Infectious Disease Hx of Infectious Diseases: None - Tetanus Immunization Tetanus Immunization: Unknown - Cardiac Hx Cardiac Disorders: No - Pulmonary Hx Respiratory Disorders: Yes Hx Asthma: Yes - Neurological Hx Neurological Disorder: No - HEENT Hx HEENT Disorder: No - Renal Hx Renal Disorder: No - Endocrine/Metabolic Hx Endocrine Disorders: No - Hematological/Oncological Hx Blood Disorders: No - Integumentary Hx Dermatological Disorder: No - Musculoskeletal/Rheumatological Hx Musculoskeletal Disorders: No - Gastrointestinal Hx Gastrointestinal Disorders: No - Genitourinary/Gynecological Hx Genitourinary Disorders: No - Psychiatric Hx Psychophysiologic Disorder: No Hx Substance Use: No - Past Surgical History Past Surgical History: No Previous - Surgical History Hx Tonsillectomy: Yes - Anesthesia Hx Anesthesia: Yes Hx Anesthesia Reactions: No Hx Malignant Hyperthermia: No - Suicidal Assessment Feels Threatened In Home Enviroment: No Family/Social History - Physician Review Nursing Documentation Reviewed: Yes Family/Social History: No Known Family HX Smoking Status: Never Smoked Hx Alcohol Use: No Hx Substance Use: No Hx Substance Use Treatment: No Allergies/Home Meds Allergies/Adverse Reactions: Allergies No Known Allergies Allergy (Verified 09/26/16 07:14) Review of Systems - Physician Review All systems were reviewed & negative as marked: Yes - Review of Systems Constitutional: Normal. absent: Fatigue, Fevers Respiratory: SOB. absent: Cough, Sputum Cardiovascular: Normal. absent: Chest Pain, Palpitations Gastrointestinal: absent: Abdominal Pain, Diarrhea, Nausea, Vomiting Musculoskeletal: Normal Neurological: Normal. absent: Headache, Dizziness Psychiatric: Normal Physical Exam Vital Signs Reviewed: Yes Vital Signs Temp Pulse Resp BP Pulse Ox 11/04/16 23:20 71 18 119/59 L 95 11/04/16 21:24 18 11/04/16 21:12 98.2 F 84 18 124/62 98 Temperature: Afebrile Blood Pressure: Normal Pulse: Regular Respiratory Rate: Normal Appearance: Positive for: Well-Appearing, Non-Toxic, Comfortable Pain Distress: None Mental Status: Positive for: Alert and Oriented X 3 - Systems Exam Head: Present: Atraumatic, Normocephalic Pupils: Present: PERRL Conjunctiva: Present: Normal Respiratory/Chest: Present: Wheezes. No: Respiratory Distress, Accessory Muscle Use Cardiovascular: Present: Regular Rate and Rhythm, Normal S1, S2. No: Murmurs Abdomen: Present: Normal Bowel Sounds. No: Tenderness, Distention, Peritoneal Signs Upper Extremity: Present: Normal Inspection. No: Cyanosis, Edema Lower Extremity: Present: Normal Inspection. No: Edema Neurological: Present: GCS=15, CN II-XII Intact, Speech Normal, Motor Func Grossly Intact, Normal Sensory Function Skin: Present: Warm, Dry, Normal Color. No: Rashes Psychiatric: Present: Alert, Oriented x 3, Normal Insight, Normal Concentration Medical Decision Making ED Course and Treatment: 11/04/16 23:28 Patient states breathing has improved markedly post breathing treatments in the emergency department. Patient is stable for discharge. Advised to present to emergency department for new or worsening symptoms and follow up with PMD within few days. - Medication Orders Current Medication Orders: Discontinued Medications Albuterol/Ipratropium (Duoneb 3 Mg/0.5 Mg (3 Ml) Ud) Confirm Administered Dose 3 ml .ROUTE .STK-MED ONE Stop: 11/04/16 21:40 Last Admin: 11/04/16 21:55 Dose: 3 ml Albuterol/Ipratropium (Duoneb 3 Mg/0.5 Mg (3 Ml) Ud) 3 ml IH Q15M [facility] Stop: 11/04/16 22:31 Last Admin: 11/04/16 22:21 Dose: 3 ml Prednisone (Prednisone Tab) 60 mg PO STAT ONE Stop: 11/04/16 21:51 Last Admin: 11/04/16 21:58 Dose: 60 mg - Scribe Statement The provider has reviewed the documentation as recorded by the Ammon Plunkett Provider Attestation: All medical record entries made by the Ammon were at my direction and personally dictated by me. I have reviewed the chart and agree that the record accurately reflects my personal performance of the history, physical exam, medical decision making, and the department course for this patient. I have also personally directed, reviewed, and agree with the discharge instructions and disposition. Disposition/Present on Arrival - Present on Arrival Any Indicators Present on Arrival: No History of DVT/PE: No History of Uncontrolled Diabetes: No Urinary Catheter: No History of Decub. Ulcer: No History Surgical Site Infection Following: None - Disposition Have Diagnosis and Disposition been Completed?: Yes Diagnosis: Asthma attack Disposition: HOME/ ROUTINE Disposition Time: 23:30 Patient Plan: Discharge Condition: STABLE Additional Instructions: Please follow up with your doctor. Return to the ER for any worsening symptoms or for any other concerns. Prescriptions: Prednisone 50 mg PO DAILY #4 tablet Referrals: [facility] [place] [Outside] - Follow up with primary Yady Adams, [Primary Care Provider] - Follow up with primary
[2016-11-04] MEDS: Albuterol-Ipratrop 3 mg / 0.5 (3 ml) UD IH SCH ×3 (21:56→22:21)
[2016-11-04 23:22] VITALS: BP 119/59; PULSE 71; O2SAT 95
== END 2016-11-04 23:42 | disposition home or self-care (01) ==
LOC: ED 21:11
DX: J45.909 Unspecified asthma, uncomplicated (principal)

== ENCOUNTER 2017-03-05 23:42 | Emergency (ER) | payer BC ==
[2017-03-05 23:42] VITALS: BMI 30.8
--- NOTE | 2017-03-05 23:45 | ED PDOC ---
Arrival/HPI - General Time Seen by Provider: 03/05/17 23:43 Historian: Patient - History of Present Illness Narrative History of Present Illness (Text): 03/05/17 23:45 36 y/o male, pmh including asthma, nkda, c/o Past Medical History - Infectious Disease Hx of Infectious Diseases: None - Tetanus Immunization Tetanus Immunization: Unknown - Cardiac Hx Cardiac Disorders: No - Pulmonary Hx Respiratory Disorders: Yes Hx Asthma: Yes - Neurological Hx Neurological Disorder: No - HEENT Hx HEENT Disorder: No - Renal Hx Renal Disorder: No - Endocrine/Metabolic Hx Endocrine Disorders: No - Hematological/Oncological Hx Blood Disorders: No - Integumentary Hx Dermatological Disorder: No - Musculoskeletal/Rheumatological Hx Musculoskeletal Disorders: No - Gastrointestinal Hx Gastrointestinal Disorders: No - Genitourinary/Gynecological Hx Genitourinary Disorders: No - Psychiatric Hx Psychophysiologic Disorder: No Hx Substance Use: No - Past Surgical History Past Surgical History: No Previous - Surgical History Hx Tonsillectomy: Yes - Anesthesia Hx Anesthesia: Yes Hx Anesthesia Reactions: No Hx Malignant Hyperthermia: No - Suicidal Assessment Feels Threatened In Home Enviroment: No Family/Social History Smoking Status: Never Smoked Hx Alcohol Use: No Hx Substance Use: No Hx Substance Use Treatment: No Allergies/Home Meds Allergies/Adverse Reactions: Allergies No Known Allergies Allergy (Verified 09/26/16 07:14) Disposition/Present on Arrival - Present on Arrival History of DVT/PE: No History of Uncontrolled Diabetes: No Urinary Catheter: No History Surgical Site Infection Following: None - Disposition
[2017-03-06 00:27] VITALS: PULSE 88; RESP 18; TEMP 98.2; O2SAT 95
[2017-03-06] MEDS ORDERED: Albuterol-Ipratrop 3 mg / 0.5 (3 ml) UD ONE (00:29)
--- NOTE | 2017-03-06 00:37 | ED PDOC ---
Arrival/HPI <Sen Pradhan - Last Filed: 03/06/17 02:16> - General Historian: Patient - History of Present Illness Time/Duration: < week (2 days) Symptom Onset: Gradual Symptom Course: Unchanged Activities at Onset: Light Context: Home <Graham Lema - Last Filed: 03/06/17 16:21> - General Chief Complaint: Shortness Of Breath Time Seen by Provider: 03/05/17 23:43 - History of Present Illness Narrative History of Present Illness (Text): 03/06/17 00:30 36 year old male, whose past medical history includes asthma, who presents to the Emergency department complaining of coughing, congestion, and wheezing for the past 2 days. Patient states for the past 24 hours he has been experiencing excessive cough and shortness of breath. Patient denies any fever, chills, or any other complaints. Patient reports no recent travel within the last 4 weeks. Patient states he had 2 Albuterol treatments at home with limited improvement, therefore he came to the ER for further evaluation. Pt. has no chest pain or palpitation, no weight loss or night sweat. (Graham Lema) Past Medical History - Provider Review Nursing Documentation Reviewed: Yes - Infectious Disease Hx of Infectious Diseases: None - Tetanus Immunization Tetanus Immunization: Unknown - Cardiac Hx Cardiac Disorders: No - Pulmonary Hx Respiratory Disorders: Yes Hx Asthma: Yes - Neurological Hx Neurological Disorder: No - HEENT Hx HEENT Disorder: No - Renal Hx Renal Disorder: No - Endocrine/Metabolic Hx Endocrine Disorders: No - Hematological/Oncological Hx Blood Disorders: No - Integumentary Hx Dermatological Disorder: No - Musculoskeletal/Rheumatological Hx Musculoskeletal Disorders: No - Gastrointestinal Hx Gastrointestinal Disorders: No - Genitourinary/Gynecological Hx Genitourinary Disorders: No - Psychiatric Hx Psychophysiologic Disorder: No Hx Substance Use: No - Past Surgical History Past Surgical History: No Previous - Surgical History Hx Tonsillectomy: Yes - Anesthesia Hx Anesthesia: Yes Hx Anesthesia Reactions: No Hx Malignant Hyperthermia: No - Suicidal Assessment Feels Threatened In Home Enviroment: No <Garham Lema - Last Filed: 03/06/17 16:21> Family/Social History - Physician Review Nursing Documentation Reviewed: Yes Family/Social History: Unknown Family HX Smoking Status: Never Smoked Hx Alcohol Use: No Hx Substance Use: No Hx Substance Use Treatment: No <Graham Lema - Last Filed: 03/06/17 16:21> Allergies/Home Meds <Sen Prdahan - Last Filed: 03/06/17 02:16> <Graham Lema - Last Filed: 03/06/17 16:21> Allergies/Adverse Reactions: Allergies No Known Allergies Allergy (Verified 09/26/16 07:14) Review of Systems - Physician Review All systems were reviewed & negative as marked: Yes - Review of Systems Constitutional: absent: Fatigue, Fevers Eyes: absent: Vision Changes ENT: absent: Hearing Changes Respiratory: Cough, Sputum, Wheezing Cardiovascular: absent: Chest Pain Gastrointestinal: absent: Abdominal Pain, Diarrhea, Nausea, Vomiting Musculoskeletal: absent: Arthralgias, Back Pain Skin: absent: Rash, Pruritis, Skin Lesions Psychiatric: absent: Anxiety, Depression, Suicidal Ideation <Graham Lema - Last Filed: 03/06/17 16:21> Physical Exam Vital Signs Reviewed: Yes Temperature: Afebrile Pulse: Regular Respiratory Rate: Normal Appearance: Positive for: Well-Appearing, Non-Toxic, Comfortable Pain Distress: None Mental Status: Positive for: Alert and Oriented X 3 - Systems Exam Head: Present: Atraumatic, Normocephalic Pupils: Present: PERRL Extroacular Muscles: Present: EOMI Conjunctiva: Present: Normal Mouth: Present: Moist Mucous Membranes Neck: Present: Normal Range of Motion Respiratory/Chest: Present: Wheezes (Generalized wheezing with decreased aeration bilaterally), Rhonchi. No: Respiratory Distress, Accessory Muscle Use , Rales, Retracting Cardiovascular: Present: Regular Rate and Rhythm, Normal S1, S2. No: Murmurs Abdomen: Present: Normal Bowel Sounds. No: Tenderness, Distention, Peritoneal Signs Back: Present: Normal Inspection Upper Extremity: Present: Normal Inspection. No: Cyanosis, Edema Lower Extremity: Present: Normal Inspection. No: Edema Neurological: Present: GCS=15, Speech Normal, Motor Func Grossly Intact, Gait Normal, Memory Normal Skin: Present: Warm, Dry, Normal Color. No: Rashes Psychiatric: Present: Alert, Oriented x 3, Normal Insight, Normal Concentration <Graham Lema - Last Filed: 03/06/17 16:21> Vital Signs Temp Pulse Resp Pulse Ox 03/06/17 00:30 18 95 03/06/17 00:24 98.2 F 88 18 95 Medical Decision Making <Sen Pradhan - Last Filed: 03/06/17 02:16> - RAD Interpretation General Road Foreman: Radiologist <Graham Lema - Last Filed: 03/06/17 16:21> ED Course and Treatment: 03/06/17 00:30 Impression: 36 year old male presents for cough, congestion, and wheezing x2 days. Plan: -- Chest X-ray -- Duoneb every 15 minutes, total of 3 if indicated -- IV steroids, Solu-medrol 125 mg -- Observe and reassess Progress Notes: 03/06/17 01:24 -chest xray show peribronchial thickening noted. -Wheezing resolved with bilateral clear entry, feeling much better, chest xray review with Dr. Pradhan. -azithromycin ordered. -Discharge home with cefdinir, albuterol mdi, prednisone, zyrtec, stay hydrated , follow up with your own pmd and mechanical tech within 2 days, return to the ER for any new or worsening signs or symptoms. (Graham Lema) - RAD Interpretation Radiology Orders: 03/06/17 00:29 CHEST PORTABLE [RAD] Stat peribronchial thickened changes noted. (Graham Lema) - Medication Orders Current Medication Orders: Discontinued Medications Albuterol/Ipratropium (Duoneb 3 Mg/0.5 Mg (3 Ml) Ud) Confirm Administered Dose 3 ml .ROUTE .STK-MED ONE Stop: 03/06/17 00:30 Last Admin: 03/06/17 02:03 Dose: Albuterol/Ipratropium (Duoneb 3 Mg/0.5 Mg (3 Ml) Ud) 3 ml IH Q15M [facility] Stop: 03/06/17 01:01 Last Admin: 03/06/17 01:15 Dose: 3 ml Azithromycin (Zithromax) 500 mg PO STAT STA PRN Reason: Protocol Stop: 03/06/17 01:25 Last Admin: 03/06/17 01:39 Dose: 500 mg Propofol (Diprivan) Confirm Administered Dose 1,000 mg in 100 mls @ ud .ROUTE .STK-MED ONE Stop: 03/06/17 02:39 Methylprednisolone (Solu-Medrol) Confirm Administered Dose 125 mg .ROUTE .STK- MED ONE Stop: 03/06/17 00:38 Last Admin: 03/06/17 00:43 Dose: 125 mg Methylprednisolone (Solu-Medrol) 125 mg IVP STAT STA Stop: 03/06/17 00:45 Last Admin: 03/06/17 01:42 Dose: Prednisone (Prednisone Tab) 60 mg PO STAT ONE Stop: 03/06/17 00:30 Last Admin: 03/06/17 02:03 Dose: - PA / APPLICATION INTEGRATION SPECIALIST / Resident Statement JUSTIN has reviewed & agrees with the documentation as recorded. JUSTIN has examined the patient and agrees with the treatment plan. <Sen Pradhan - Last Filed: 03/06/17 02:16> - PA / APPLICATION INTEGRATION SPECIALIST / Resident Statement JUSTIN has reviewed & agrees with the documentation as recorded. - Scribe Statement The provider has reviewed the documentation as recorded by the Scribe <Graham Lema - Last Filed: 03/06/17 16:21> - Scribe Statement Apoorva Denis Provider Scribe Attestation: All medical record entries made by the Scribe were at my direction and personally dictated by me. I have reviewed the chart and agree that the record accurately reflects my personal performance of the history, physical exam, medical decision making, and the department course for this patient. I have also personally directed, reviewed, and agree with the discharge instructions and disposition./ (Graham Lema) Disposition/Present on Arrival <Sen Pradhan - Last Filed: 03/06/17 02:16> - Present on Arrival Any Indicators Present on Arrival: No History of DVT/PE: No History of Uncontrolled Diabetes: No Urinary Catheter: No History of Decub. Ulcer: No History Surgical Site Infection Following: None - Disposition Have Diagnosis and Disposition been Completed?: Yes Disposition Time: Patient Plan: Discharge <Graham Lema - Last Filed: 03/06/17 16:21> - Disposition Diagnosis: Bronchitis Disposition: HOME/ ROUTINE Condition: IMPROVED Additional Instructions: -Discharge home with cefdinir, albuterol mdi, prednisone, zyrtec, stay hydrated , follow up with your own pmd and mechanical tech within 2 days, return to the ER for any new or worsening signs or symptoms. Prescriptions: Cefdinir [Omnicef] 300 mg PO BID #20 cap Cetirizine HCl [Zyrtec] 10 mg PO DAILY #10 capsule Famotidine [Pepcid] 20 mg PO BID #12 tab predniSONE [Prednisone] 2 tab PO DAILY #10 tab Referrals: Altagracia Sanchez MD [Primary Care Provider] - Follow up with primary Forms: [employer] (Niuean)
[2017-03-06] MEDS: Albuterol-Ipratrop 3 mg / 0.5 (3 ml) UD IH SCH ×3 (00:43→01:15)
[2017-03-06] MEDS ORDERED: Propofol 10 mg/ml 1,000 MG/100 ML VIAL ONE (02:38)
--- NOTE | 2017-03-06 09:24 | RAD ---
HISTORY: coughing and wheezing COMPARISON: Comparison chest 10/12/2016 FINDINGS: LUNGS: Interstitial markings are slightly increased and coarsened with a few scattered peribronchial cuffing changes. Changes may represent sequela of reactive/inflammatory airway disease or viral illness. PLEURA: No significant pleural effusion identified, no pneumothorax apparent. CARDIOVASCULAR: Normal. OSSEOUS STRUCTURES: No significant abnormalities. VISUALIZED UPPER ABDOMEN: Normal. OTHER FINDINGS: None. IMPRESSION: Interstitial markings are slightly increased and coarsened with a few scattered peribronchial cuffing changes. Changes may represent sequela of reactive/inflammatory airway disease or viral illness.
== END 2017-03-06 01:25 | disposition home or self-care (01) ==
LOC: ED 23:42
DX: J40 Bronchitis, not specified as acute or chronic (principal)
CPT/HCPCS: 71010; 96374; 99282; J2930

== ENCOUNTER 2017-03-14 17:34 | Emergency (ER) | payer BC ==
[2017-03-14 17:39] VITALS: BP 106/50; PULSE 65; RESP 20; TEMP 98.6; O2SAT 95; BMI 32.1
[2017-03-14] MEDS ORDERED: Albuterol-Ipratrop 3 mg / 0.5 (3 ml) UD IH STA (17:42)
--- NOTE | 2017-03-14 17:46 | ED PDOC ---
Arrival/HPI - General Chief Complaint: Shortness Of Breath Time Seen by Provider: 03/14/17 17:34 - History of Present Illness Narrative History of Present Illness (Text): 36 year old M c Past medical history asthma, never intubated, admitted once p/w shortness of breath which he states is typical of his asthma. He denies fever, cough, leg swelling. States that since his last visit 1 week prior, he did improve somewhat but worsened again. Past Medical History - Infectious Disease Hx of Infectious Diseases: None - Tetanus Immunization Tetanus Immunization: Unknown - Cardiac Hx Cardiac Disorders: No - Pulmonary Hx Respiratory Disorders: Yes Hx Asthma: Yes - Neurological Hx Neurological Disorder: No - HEENT Hx HEENT Disorder: No - Renal Hx Renal Disorder: No - Endocrine/Metabolic Hx Endocrine Disorders: No - Hematological/Oncological Hx Blood Disorders: No - Integumentary Hx Dermatological Disorder: No - Musculoskeletal/Rheumatological Hx Musculoskeletal Disorders: No - Gastrointestinal Hx Gastrointestinal Disorders: No - Genitourinary/Gynecological Hx Genitourinary Disorders: No - Psychiatric Hx Psychophysiologic Disorder: No Hx Substance Use: No - Past Surgical History Past Surgical History: No Previous - Surgical History Hx Tonsillectomy: Yes - Anesthesia Hx Anesthesia: Yes Hx Anesthesia Reactions: No Hx Malignant Hyperthermia: No - Suicidal Assessment Feels Threatened In Home Enviroment: No Family/Social History Family/Social History: No Known Family HX Smoking Status: Never Smoked Hx Alcohol Use: No Hx Substance Use: No Hx Substance Use Treatment: No Allergies/Home Meds Allergies/Adverse Reactions: Allergies No Known Allergies Allergy (Verified 09/26/16 07:14) Home Medications: Home Meds Medication Instructions Recorded Confirmed Fluticasone/Salmeterol [Advair 1 puff INH BID 03/14/17 03/14/17 250-50 Diskus] Review of Systems - Physician Review All systems were reviewed & negative as marked: Yes - Review of Systems Constitutional: absent: Fevers Respiratory: SOB Cardiovascular: absent: Chest Pain Physical Exam Vital Signs Temp Pulse Resp BP Pulse Ox 03/14/17 17:34 98.6 F 65 20 106/50 L 95 - Systems Exam Head: Present: Normocephalic Mouth: Present: Moist Mucous Membranes Respiratory/Chest: Present: Wheezes (diffuse). No: Respiratory Distress, Accessory Muscle Use Cardiovascular: Present: Regular Rate and Rhythm, Normal S1, S2 Abdomen: No: Tenderness Back: No: CVA Tenderness Upper Extremity: Present: NORMAL PULSES Lower Extremity: No: Swelling Neurological: Present: GCS=15 Skin: No: Rashes Psychiatric: Present: Alert Medical Decision Making ED Course and Treatment: Will treat with duonebs and 1 dose of decadron. Advised follow up with pulmonology. Given CXR 1 week prior which was viral illness vs reactive airway disease and no focal findings on examination today, will not obtain repeat CXR. On reassessment, patient in no acute distress. Will discharge, continue albuterol, return to emergency department for worsening breathing, fever, or any other problem. - Medication Orders Current Medication Orders: Discontinued Medications Albuterol/Ipratropium (Duoneb 3 Mg/0.5 Mg (3 Ml) Ud) 3 ml IH Q15M [facility] Stop: 03/14/17 17:43 Dexamethasone (Decadron) 10 mg PO STAT STA Stop: 03/14/17 17:43 Disposition/Present on Arrival - Present on Arrival Any Indicators Present on Arrival: No History of DVT/PE: No History of Uncontrolled Diabetes: No Urinary Catheter: No History of Decub. Ulcer: No History Surgical Site Infection Following: None - Disposition Have Diagnosis and Disposition been Completed?: Yes Diagnosis: Asthma attack Disposition: HOME/ ROUTINE Disposition Time: 18:15 Patient Plan: Discharge Condition: STABLE Discharge Instructions (ExitCare): Asthma (ED) Prescriptions: Albuterol 0.083% [Albuterol Sulfate 3 Ml] 3 ml IH Q4 #150 neb Albuterol HFA [Ventolin HFA 90 mcg/actuation (8 g)] 2 puff IH Q6 #1 inhaler Dexamethasone [Decadron] 10 mg PO ONCE #5 tab Forms: [employer] (Niuean)
--- NOTE | 2017-03-16 00:27 | CARD ---
APPROVED REPORT EKG Measurement Heart [id number] <Conclusion> Normal sinus rhythm Normal ECG
== END 2017-03-14 17:56 | disposition home or self-care (01) ==
LOC: ED 17:34
DX: J45.909 Unspecified asthma, uncomplicated (principal)
CPT/HCPCS: 93005; 94640; 99283; J8540

== ENCOUNTER 2017-04-03 12:13 | Emergency (ER) | payer BC ==
[2017-04-03 12:14] VITALS: BMI 32.1
[2017-04-03 12:20] VITALS: BP 116/67; PULSE 67; TEMP 98.1; O2SAT 97
[2017-04-03] MEDS: Albuterol-Ipratrop 3 mg / 0.5 (3 ml) UD IH SCH ×3 (12:33→13:02)
--- NOTE | 2017-04-03 12:41 | ED PDOC ---
Arrival/HPI - General Chief Complaint: Shortness Of Breath Time Seen by Provider: 04/03/17 12:18 Historian: Patient - History of Present Illness Narrative History of Present Illness (Text): The patient is a 36yo male, with PMHx of asthma, presents to the ED for evaluation of chest tightness for the past day, worsening with activity. Patient reports associated cough but denies any sputum. He also denies any fever or chills. Patient states he used his inhaler twice with mild relief of his symptoms. Patient offers no additional medical complaints. Past Medical History - Provider Review Nursing Documentation Reviewed: Yes - Infectious Disease Hx of Infectious Diseases: None - Tetanus Immunization Tetanus Immunization: Unknown - Cardiac Hx Cardiac Disorders: No - Pulmonary Hx Respiratory Disorders: Yes Hx Asthma: Yes - Neurological Hx Neurological Disorder: No - HEENT Hx HEENT Disorder: No - Renal Hx Renal Disorder: No - Endocrine/Metabolic Hx Endocrine Disorders: No - Hematological/Oncological Hx Blood Disorders: No - Integumentary Hx Dermatological Disorder: No - Musculoskeletal/Rheumatological Hx Musculoskeletal Disorders: No - Gastrointestinal Hx Gastrointestinal Disorders: No - Genitourinary/Gynecological Hx Genitourinary Disorders: No - Psychiatric Hx Psychophysiologic Disorder: No Hx Substance Use: No - Past Surgical History Past Surgical History: No Previous - Surgical History Hx Tonsillectomy: Yes - Anesthesia Hx Anesthesia: Yes Hx Anesthesia Reactions: No Hx Malignant Hyperthermia: No - Suicidal Assessment Feels Threatened In Home Enviroment: No Family/Social History - Physician Review Nursing Documentation Reviewed: Yes Family/Social History: Other (non-contributing) Smoking Status: Never Smoked Hx Alcohol Use: No Hx Substance Use: No Hx Substance Use Treatment: No Allergies/Home Meds Allergies/Adverse Reactions: Allergies No Known Allergies Allergy (Verified 04/03/17 12:20) Home Medications: Home Meds Medication Instructions Recorded Confirmed Fluticasone/Salmeterol [Advair 1 puff INH BID 03/14/17 04/03/17 250-50 Diskus] Review of Systems - Review of Systems Constitutional: absent: Fevers Respiratory: SOB, Cough. absent: Sputum Cardiovascular: Other (chest tightness). absent: Chest Pain Physical Exam Vital Signs Reviewed: Yes Vital Signs Temp Pulse Resp BP Pulse Ox 04/03/17 12:25 16 04/03/17 12:19 98.1 F 67 17 116/67 97 Appearance: Positive for: Well-Appearing, Non-Toxic, Comfortable Pain Distress: None Mental Status: Positive for: Alert and Oriented X 3 - Systems Exam Head: Present: Atraumatic, Normocephalic Neck: Present: Normal Range of Motion Respiratory/Chest: Present: Wheezes (wheeze present bilaterally). No: Respiratory Distress, Accessory Muscle Use Cardiovascular: Present: Regular Rate and Rhythm Abdomen: No: Tenderness, Distention Upper Extremity: Present: Normal Inspection, Normal ROM Lower Extremity: Present: Normal Inspection, Normal ROM Neurological: Present: GCS=15, CN II-XII Intact Psychiatric: Present: Alert, Oriented x 3 Medical Decision Making ED Course and Treatment: Patient states he ran out of Advair last week and has not visited his PCP yet. Patient currently requesting prescriptions for Advair (250/50) 04/03/17 13:30 Patient reports feeling much better. - EKG Interpretation EKG Interpretation (Text): Normal sinus rhythm Normal axis Normal intervals No ischemia RAte: 66 bpm - Medication Orders Current Medication Orders: Discontinued Medications Albuterol/Ipratropium (Duoneb 3 Mg/0.5 Mg (3 Ml) Ud) 3 ml IH Q15M [facility] Stop: 04/03/17 13:01 Last Admin: 04/03/17 13:02 Dose: 3 ml Prednisone (Prednisone Tab) 60 mg PO STAT ONE Stop: 04/03/17 12:25 Last Admin: 04/03/17 12:32 Dose: 60 mg - Scribe Statement The provider has reviewed the documentation as recorded by the Ammon Nunes Provider Attestation: All medical record entries made by the Ammon were at my direction and personally dictated by me. I have reviewed the chart and agree that the record accurately reflects my personal performance of the history, physical exam, medical decision making, and the department course for this patient. I have also personally directed, reviewed, and agree with the discharge instructions and disposition. Disposition/Present on Arrival - Present on Arrival Any Indicators Present on Arrival: No History of DVT/PE: No History of Uncontrolled Diabetes: No Urinary Catheter: No History of Decub. Ulcer: No History Surgical Site Infection Following: None - Disposition Have Diagnosis and Disposition been Completed?: Yes Diagnosis: Asthma exacerbation Disposition: HOME/ ROUTINE Disposition Time: 13:30 Condition: IMPROVED Additional Instructions: Please follow up with your doctor. Return to the ER for any worsening symptoms or for any other concerns. Prescriptions: Albuterol HFA [Ventolin HFA 90 mcg/actuation (8 g)] 1 - 2 puff IH Q6H PRN #1 inhaler PRN Reason: Wheezing Fluticasone/Salmeterol [Advair 250-50 Diskus] 1 each IH DAILY #1 blst.w.dev Prednisone 50 mg PO DAILY #4 tablet Forms: [employer] (Swedish)
[2017-04-03 12:55] VITALS: RESP 16
--- NOTE | 2017-04-04 15:55 | CARD ---
APPROVED REPORT EKG Measurement Heart [id number] <Conclusion> Normal sinus rhythm Normal ECG
== END 2017-04-03 13:42 | disposition home or self-care (01) ==
LOC: ED 12:13
DX: J45.901 Unspecified asthma with (acute) exacerbation (principal)

== ENCOUNTER 2017-04-28 17:33 | Emergency (ER) | payer BC ==
[2017-04-28 17:33] VITALS: BMI 32.1
[2017-04-28 18:08] VITALS: TEMP 98.4
--- NOTE | 2017-04-28 18:17 | ED PDOC ---
Arrival/HPI - General Historian: Patient - History of Present Illness Time/Duration: Other (2 days) Symptom Onset: Gradual Symptom Course: Worsening - General Chief Complaint: Cough, Cold, Congestion Time Seen by Provider: 04/28/17 17:50 - History of Present Illness Narrative History of Present Illness (Text): 04/28/17 18:13 36yr old male presents today with cough, nasal congestion x 2 days. no cp or sob. c/o subjective fevers and chills. pt denies sick contacts. no dizziness or weakness. pt states cough is dry, occasional wheezing. pt states he used his asthma inhaler prior to arrival. denies urinary symptoms. no other complaints. (Jeniffer Hernandez) Past Medical History - Provider Review Nursing Documentation Reviewed: Yes - Travel History Have you recently traveled outside [place] w/in the past 3 mons?: No - Infectious Disease Hx of Infectious Diseases: None - Tetanus Immunization Tetanus Immunization: Unknown - Cardiac Hx Cardiac Disorders: No - Pulmonary Hx Respiratory Disorders: Yes Hx Asthma: Yes - Neurological Hx Neurological Disorder: No - HEENT Hx HEENT Disorder: No - Renal Hx Renal Disorder: No - Endocrine/Metabolic Hx Endocrine Disorders: No - Hematological/Oncological Hx Blood Disorders: No - Integumentary Hx Dermatological Disorder: No - Musculoskeletal/Rheumatological Hx Musculoskeletal Disorders: No - Gastrointestinal Hx Gastrointestinal Disorders: No - Genitourinary/Gynecological Hx Genitourinary Disorders: No - Psychiatric Hx Psychophysiologic Disorder: No Hx Substance Use: No - Past Surgical History Past Surgical History: No Previous - Surgical History Hx Tonsillectomy: Yes Other/Comment: Adnoidectomy - Anesthesia Hx Anesthesia: Yes Hx Anesthesia Reactions: No Hx Malignant Hyperthermia: No - Suicidal Assessment Feels Threatened In Home Enviroment: No Family/Social History - Physician Review Nursing Documentation Reviewed: Yes Family/Social History: Unknown Family HX Smoking Status: Never Smoked Hx Alcohol Use: No Hx Substance Use: No Hx Substance Use Treatment: No Allergies/Home Meds Allergies/Adverse Reactions: Allergies No Known Allergies Allergy (Verified 04/28/17 18:03) Home Medications: Home Meds Medication Instructions Recorded Confirmed Fluticasone/Salmeterol [Advair 1 each IH BID 04/28/17 04/28/17 250-50 Diskus] Review of Systems - Review of Systems Constitutional: Fevers. absent: Fatigue ENT: Sinus Congestion. absent: Sore Throat Respiratory: Cough. absent: SOB Cardiovascular: absent: Chest Pain, Palpitations Gastrointestinal: absent: Abdominal Pain, Nausea, Vomiting Musculoskeletal: absent: Back Pain, Neck Pain Skin: absent: Rash, Pruritis Neurological: absent: Headache, Dizziness Psychiatric: absent: Anxiety, Depression Physical Exam Vital Signs Reviewed: Yes Temperature: Afebrile Blood Pressure: Normal Pulse: Regular Respiratory Rate: Normal Appearance: Positive for: Well-Appearing, Non-Toxic, Comfortable Pain Distress: None Mental Status: Positive for: Alert and Oriented X 3 - Systems Exam Head: Present: Atraumatic Conjunctiva: Present: Normal Ears: Present: Normal, NORMAL TM Mouth: Present: Moist Mucous Membranes. No: Drooling, Trismus Pharnyx: Present: Normal. No: ERYTHEMA, EXUDATE, TONSILS ENLARGED, Peritonsilar Swelling, Uvular Deviation, Muffled/Hoarse Voice Nose (External): Present: Atraumatic Nose (Internal): Present: No Active Bleeding, Moist, Clear Mucous. No: Septal Hematoma Neck: Present: Normal Range of Motion, Trachea Midline. No: Meningeal Signs Respiratory/Chest: Present: Clear to Auscultation, Good Air Exchange. No: Respiratory Distress, Accessory Muscle Use, Wheezes, Rhonchi, Tachypneic Cardiovascular: Present: Regular Rate and Rhythm, Normal S1, S2. No: Murmurs Abdomen: No: Tenderness Neurological: Present: GCS=15, Speech Normal Skin: Present: Warm, Dry, Normal Color. No: Rashes Psychiatric: Present: Alert, Oriented x 3 Vital Signs Temp Pulse Resp BP Pulse Ox 04/28/17 20:07 77 18 123/68 99 04/28/17 18:01 98.4 F 72 16 121/71 98 Medical Decision Making ED Course and Treatment: 04/28/17 18:55 36yr old male with cough and uri symptoms x 2 days. vitals stable. lungs cta bilaterally; no wheezing. cxr; no infilrate. zithromax po will treat patient for cough with zithromax. advised f/u with pmd. advised immediate return if symptoms worsen,persist or if new symptoms develop; high, fevers, SOB or if any other concerning symptoms develop. impression; cough Motrin every 6 hours as needed for pain Zithromax one tablet once daily x4 days Increase fluids Followup with primary care physician the next 2 days Return if symptoms worsen persist or if new symptoms develop; high fevers, shortness of breath, dizziness, weakness, or if any other concerning symptoms develop. (Jeniffer Hernandez) - RAD Interpretation Radiology Orders: 04/28/17 18:12 CHEST TWO VIEWS (PA/LAT) [RAD] Stat - Medication Orders Current Medication Orders: Discontinued Medications Azithromycin (Zithromax) 500 mg PO STAT STA PRN Reason: Protocol Stop: 04/28/17 19:32 Last Admin: 04/28/17 20:06 Dose: 500 mg Disposition/Present on Arrival - Present on Arrival Any Indicators Present on Arrival: No History of DVT/PE: No History of Uncontrolled Diabetes: No Urinary Catheter: No History of Decub. Ulcer: No History Surgical Site Infection Following: None - Disposition Have Diagnosis and Disposition been Completed?: Yes Disposition Time: 19:31 Patient Plan: Discharge - Disposition Diagnosis: Cough Disposition: HOME/ ROUTINE Condition: GOOD Discharge Instructions (ExitCare): Acute Cough (ED) Additional Instructions: Motrin every 6 hours as needed for pain Zithromax one tablet once daily x4 days Increase fluids Followup with primary care physician the next 2 days Return if symptoms worsen persist or if new symptoms develop; high fevers, shortness of breath, dizziness, weakness, or if any other concerning symptoms develop. Prescriptions: Azithromycin [Zithromax] 250 mg PO DAILY #4 tab Fluticasone Nasal [Flonase] 2 spr NS DAILY #1 spr Referrals: Winston Maldonado MD [Staff Provider] - Follow up with primary Forms: [employer] [facility] ([place]), WORK NOTE
[2017-04-28 20:08] VITALS: BP 123/68; PULSE 77; RESP 18; O2SAT 99
--- NOTE | 2017-04-29 09:07 | RAD ---
HISTORY: cough COMPARISON: 03/06/2017 TECHNIQUE: Chest PA and lateral FINDINGS: LUNGS: No active pulmonary disease. PLEURA: No significant pleural effusion identified. No pneumothorax apparent. CARDIOVASCULAR: Normal. OSSEOUS STRUCTURES: No significant abnormalities. VISUALIZED UPPER ABDOMEN: Normal. OTHER FINDINGS: None. IMPRESSION: No active disease.
== END 2017-04-28 20:07 | disposition home or self-care (01) ==
LOC: ED 17:33
DX: R05 Cough (principal)

== ENCOUNTER 2017-06-29 18:33 | Emergency (ER) | payer BC ==
[2017-06-29 18:33] VITALS: BMI 32.1
[2017-06-29] MEDS ORDERED: Sodium Chloride 0.9% 1,000 ML IV STA (19:30)
--- NOTE | 2017-06-29 19:39 | ED PDOC ---
Arrival/HPI - General Chief Complaint: GI Problem Time Seen by Provider: 06/29/17 19:28 Historian: Patient - History of Present Illness Narrative History of Present Illness (Text): 06/29/17 19:28 37 y/o male pmh including asthma, nkda, c/o nausea/bodyache with coughing started today. Pt. has +sick contact with similiar symptoms with supportive care, no night sweat, no dizziness, no rash, no neck stiffness or headache but admits fatigue and bodyache, didn't receive the flu shot this year, no other medical or psychological complaints. Past Medical History - Provider Review Nursing Documentation Reviewed: Yes - Infectious Disease Hx of Infectious Diseases: None - Tetanus Immunization Tetanus Immunization: Unknown - Cardiac Hx Cardiac Disorders: No - Pulmonary Hx Respiratory Disorders: Yes Hx Asthma: Yes - Neurological Hx Neurological Disorder: No - HEENT Hx HEENT Disorder: No - Renal Hx Renal Disorder: No - Endocrine/Metabolic Hx Endocrine Disorders: No - Hematological/Oncological Hx Blood Disorders: No - Integumentary Hx Dermatological Disorder: No - Musculoskeletal/Rheumatological Hx Musculoskeletal Disorders: No - Gastrointestinal Hx Gastrointestinal Disorders: No - Genitourinary/Gynecological Hx Genitourinary Disorders: No - Psychiatric Hx Psychophysiologic Disorder: No Hx Substance Use: No - Past Surgical History Past Surgical History: No Previous - Surgical History Hx Tonsillectomy: Yes Other/Comment: Adnoidectomy - Anesthesia Hx Anesthesia: Yes Hx Anesthesia Reactions: No Hx Malignant Hyperthermia: No - Suicidal Assessment Feels Threatened In Home Enviroment: No Family/Social History - Physician Review Nursing Documentation Reviewed: Yes Family/Social History: Unknown Family HX Smoking Status: Never Smoked Hx Alcohol Use: No Hx Substance Use: No Hx Substance Use Treatment: No Allergies/Home Meds Allergies/Adverse Reactions: Allergies No Known Allergies Allergy (Verified 06/29/17 18:56) Review of Systems - Review of Systems Constitutional: Fatigue, Fevers Eyes: absent: Vision Changes ENT: absent: Hearing Changes Respiratory: absent: SOB, Cough Cardiovascular: absent: Chest Pain Gastrointestinal: Nausea. absent: Abdominal Pain, Diarrhea, Vomiting Skin: absent: Rash, Pruritis, Skin Lesions, Laceration, Abscess, Ulcer Neurological: absent: Headache, Dizziness, Focal Weakness Psychiatric: absent: Anxiety, Depression, Suicidal Ideation Physical Exam Vital Signs Reviewed: Yes Vital Signs Temp Pulse Resp BP Pulse Ox 06/29/17 21:33 99.7 F H 89 17 110/60 99 06/29/17 18:56 100.4 F H 98 H 17 103/68 97 Temperature: Febrile Blood Pressure: Normal Pulse: Regular Respiratory Rate: Normal Appearance: Positive for: Well-Appearing, Non-Toxic, Uncomfortable Pain Distress: Moderate Mental Status: Positive for: Alert and Oriented X 3 - Systems Exam Head: Present: Atraumatic, Normocephalic Pupils: Present: PERRL Extroacular Muscles: Present: EOMI Conjunctiva: Present: Normal Ears: Present: Other (Ears: Lt. TM erythematous and intact, rt. TM nieves color and intact, bilateral auditory canals non-erythematous, no mastoid tenderness. ) Mouth: Present: Moist Mucous Membranes Pharnyx: No: ERYTHEMA, EXUDATE, TONSILS ENLARGED, Uvular Deviation, Muffled/ Hoarse Voice Nose (External): Present: Atraumatic. No: Abrasion, Contusion Nose (Internal): Present: Normal Inspection, No Active Bleeding. No: Rhinorrhea , Septal Hematoma, Epistaxis Neck: Present: Normal Range of Motion, Trachea Midline. No: Meningeal Signs, MIDLINE TENDERNESS, Lymphadenopathy Respiratory/Chest: Present: Clear to Auscultation, Good Air Exchange. No: Respiratory Distress, Accessory Muscle Use Cardiovascular: Present: Regular Rate and Rhythm, Normal S1, S2. No: Murmurs Abdomen: Present: Normal Bowel Sounds. No: Tenderness, Distention, Peritoneal Signs, Rebound, Guarding Back: Present: Normal Inspection Upper Extremity: Present: Normal Inspection. No: Cyanosis, Edema Lower Extremity: Present: Normal Inspection. No: Edema Neurological: Present: GCS=15, CN II-XII Intact, Speech Normal Skin: Present: Warm, Dry, Normal Color. No: Rashes Psychiatric: Present: Alert, Oriented x 3, Normal Insight, Normal Concentration Medical Decision Making ED Course and Treatment: 06/29/17 19:41 -labs/ua/rapid flu -CXR -IVF/tylenol/toradol -Observe and reassess 06/29/17 23:16 -Labs are non-significant -Rapid flu negative -UA show no UTI but there is ketonuria, IVF ordered, able to tolerate po solid and fluid -Chest xray with no visible active disease. -Augmentin and tamiflu ordered -Pt. feels much better, no abdominal pain/nausea/vomiting -Discharge home with augmentin, tamiflu, tylenol, bed rest, follow up with your own pmd and ENT within 2 days, return to the ER for any new or worsening signs or symptoms. - Lab Interpretations Lab Results: 06/29/17 20:02 06/29/17 20:02 Lab Results 06/29/17 20:02: Sodium 144, Chloride 105, Potassium 4.1, Carbon Dioxide 27, Anion Gap 16, BUN 17, Creatinine 1.0, Est GFR ( Amer) > 60, Est GFR (Non- Af Amer) > 60, Random Glucose 109, Calcium 9.6, Total Bilirubin 1.0, AST 47, ALT 67 H, Alkaline Phosphatase 100, Total Protein 7.6, Albumin 4.4, Globulin 3.2 , Albumin/Globulin Ratio 1.4, Lipase 34 06/29/17 20:02: pO2 26 L, VBG pH 7.37, VBG pCO2 47.0, VBG HCO3 27.2, VBG Total CO2 28.6 H, VBG O2 Sat (Calc) 47.5, VBG Base Excess 1.3, VBG Potassium 3.8, Sodium 141.0, Chloride 105.0, Glucose 109, Lactate 1.2, FiO2 21.0, Venous Blood Potassium 3.8 06/29/17 20:02: WBC 6.4 D, RBC 5.72, Hgb 16.3, Hct 46.1, MCV 80.6, MCH 28.5, MCHC 35.4, RDW 13.2, Plt Count 174, MPV 10.0, Gran % 86.0 H, Lymph % (Auto) 3.9 L, [place] % (Auto) 7.2 H, Eos % (Auto) 2.7, Baso % (Auto) 0.2, Gran # 5.51, Lymph # 0.3 L, [place] # 0.5, Eos # 0.2, Baso # 0.01, Neutrophils % (Manual) 88 H, Band Neutrophils % 1, Lymphocytes % (Manual) 9 L, Monocytes % (Manual) 1, Eosinophils % (Manual) 1, Platelet Evaluation Normal, Polychromasia Slight 06/29/17 19:45: Urine Color Yellow, Urine Appearance Clear, Urine pH 6.0, Ur Specific [place] 1.020, Urine Protein Negative, Urine Glucose (UA) Negative, Urine Ketones 40 H, Urine Blood Negative, Urine Nitrate Negative, Urine Bilirubin Negative, Urine Urobilinogen 0.2, Ur Leukocyte Esterase Negative 06/29/17 19:40: Influenza Typ A,B (EIA) Negative for flu a/b I have reviewed the lab results: Yes Interpretation: No clinic. lab abnormalty - RAD Interpretation Radiology Orders: 06/29/17 19:38 CHEST PORTABLE [RAD] Stat no definite acute cardiopulmonary disease Bottom Bleacher: Radiologist - Medication Orders Current Medication Orders: Discontinued Medications Acetaminophen (Tylenol 325mg Tab) 650 mg PO STAT STA Stop: 06/29/17 19:31 Last Admin: 06/29/17 20:05 Dose: 650 mg MAR Pain/Vitals Document 06/29/17 20:05 RD (Rec: 06/29/17 20:05 RD [id number]) Pain Reassessment Is This A Pain ReAssessment? No Sleep Is patient sleeping during reassessment? No Presence of Pain Presence of Pain Yes Sodium Chloride (Sodium Chloride 0.9%) 1,000 mls @ 999 mls/hr IV .Q1H1M STA Stop: 06/29/17 20:30 Last Admin: 06/29/17 19:55 Dose: 999 mls/hr eMAR Start Stop Document 06/29/17 19:55 RD (Rec: 06/29/17 20:04 RD [id number]) Intravenous Solution Start Date 06/29/17 Start Time 19:55 End Date 06/29/17 End time 20:55 Total Infusion Time 60 - PA / CARE ASSISTANT / Resident Statement MD/DO has reviewed & agrees with the documentation as recorded. Disposition/Present on Arrival - Present on Arrival Any Indicators Present on Arrival: No History of DVT/PE: No History of Uncontrolled Diabetes: No Urinary Catheter: No History of Decub. Ulcer: No History Surgical Site Infection Following: None - Disposition Have Diagnosis and Disposition been Completed?: Yes Diagnosis: Otitis media, Flu-like symptoms Disposition: HOME/ ROUTINE Disposition Time: 23:18 Patient Plan: Discharge Condition: IMPROVED Additional Instructions: Discharge home with augmentin, tamiflu, tylenol, bed rest, follow up with your own pmd and ENT within 2 days, return to the ER for any new or worsening signs or symptoms. Prescriptions: Acetaminophen [Tylenol 325mg tab] 2 tab PO QID PRN #30 tab PRN Reason: Other Amoxicillin/Clavulanate [Augmentin 875 MG-125 MG] 1 tab PO BID #20 tab Oseltamivir Phosphate [Tamiflu] 75 mg PO BID #10 capsule Referrals: Yady Adams, [Primary Care Provider] - Follow up with primary Corwin Valencia DO [Staff Provider] - Follow up with primary [facility] at [facility] [place] [Outside] - Follow up with primary Forms: WORK NOTE
[2017-06-29 19:53] LABS: URINE BILIRUBIN NEGATIVE (NEGATIVE); URINE BLOOD NEGATIVE (NEGATIVE); URINE GLUCOSE (UA) NEGATIVE (NEGATIVE); URINE KETONE 40 mg/dL (NEGATIVE); URINE LEUKOCYTE ESTERASE NEGATIVE Leu/uL (NEGATIVE); URINE PROTEIN NEGATIVE mg/dL (<30 mg/dL); URINE UROBILINOGEN 0.2 E.U./dL (<1 E.U./dL)
[2017-06-29 19:55] LABS: URINE APPEARANCE CLEAR (CLEAR); URINE COLOR YELLOW (YELLOW)
[2017-06-29 20:09] LABS: VENOUS BLOOD GAS BASE EXCESS 1.3 mmol/L (0.0-2.0); VENOUS BLOOD PH 7.37 (7.32-7.43)
[2017-06-29 20:12] LABS: BASO # 0.01 K/mm3 (0.0-2.0); BASO % 0.2 % (0.0-3.0); EOS # 0.2 (0.0-0.7); EOS % 2.7 % (1.5-5.0); GRAN # 5.51 (1.4-6.5); HEMATOCRIT 46.1 % (42.0-52.0); LYMPH # 0.3 (1.2-3.4); LYMPH % 3.9 % (22.0-35.0); MEAN CELL VOLUME 80.6 fl (80.0-105.0); MEAN CORPUSCULAR HEMOGLOBIN 28.5 pg (25.0-35.0); MEAN CORPUSCULAR HGB CONC 35.4 g/dl (31.0-37.0); MONO # 0.5 (0.1-0.6); MONO % 7.2 % (1.0-6.0); PLATELET COUNT 174 10^3/uL (120.0-450.0); RED CELL DISTRIBUTION WIDTH 13.2 % (11.5-14.5); WHITE BLOOD COUNT 6.4 10^3/ul (4.5-11.0)
[2017-06-29 20:18] LABS: ALB/GLOB RATIO 1.4 (1.1-1.8); ALKALINE PHOSPHATASE 100 U/L (38-126); ALT/SGPT 67 U/L (7-56); AST/SGOT 47 U/L (17-59); BLOOD UREA NITROGEN 17 mg/dL (7-21); CALCIUM 9.6 mg/dL (8.4-10.5); CARBON DIOXIDE 27 mmol/L (21-33); CHLORIDE 105 mmol/L (98-107); GFR AFRICAN-AMERICAN > 60; GLUCOSE,RANDOM 109 mg/dL (70-110); LIPASE 34 U/L (23-300); POTASSIUM 4.1 mmol/L (3.6-5.0); SODIUM 144 mmol/L (132-148); TOTAL PROTEIN 7.6 g/dL (5.8-8.3)
[2017-06-29 21:01] LABS: BAND 1 % (0-2)
[2017-06-29 21:02] LABS: POLYCHROMASIA SLIGHT
[2017-06-29 21:08] LABS: EOSINOPHIL 1 % (0.0-3.0); NEUTROPHIL 88 % (50.0-70.0)
[2017-06-29 21:09] LABS: PLATELET ESTIMATE NORMAL (NORMAL)
[2017-06-29 21:35] VITALS: TEMP 99.7
--- NOTE | 2017-06-29 22:22 | RAD ---
EXAM: XR Chest, 1 View CLINICAL HISTORY: 37 years old, male; Pain; Chest pain; Additional info: Medical clearance TECHNIQUE: Frontal view of the chest. COMPARISON: DX - CHEST TWO VIEWS (PA/LAT) 2017-04-28 18:31 FINDINGS: Limitations: Radiographic technique - mild. Lungs: No consolidation. Pleural space: No definite pleural effusion. No pneumothorax. Heart: No cardiomegaly. Mediastinum: Unremarkable. Bones/joints: No acute fracture. IMPRESSION: 1. No definite acute cardiopulmonary disease.
[2017-06-29] MEDS ORDERED: Amoxicillin-Clav 875-125 mg Tab PO STA (23:14)
[2017-06-29] MEDS ORDERED: Sodium Chloride 0.9% 500 ML IV STA (23:16)
[2017-06-30 00:16] VITALS: BP 118/72; PULSE 86; RESP 19; O2SAT 97
== END 2017-06-30 00:15 | disposition home or self-care (01) ==
LOC: ED 18:33
DX: J11.1 Influenza due to unidentified influenza virus with other respiratory manifestations (principal); H66.92 Otitis media, unspecified, left ear
CPT/HCPCS: 71010; 80053; 81003; 82803; 83690; 85025; 87804; 96360; 99283; J7040